=== PATIENT | female | born 1980 | race Caucasian/White ===

== ENCOUNTER 2024-04-11 05:35 | Day surgery (SDC) | payer OTHER, SELFPAY ==
[2024-04-11] VITALS (8 sets, daily range): BP systolic 97–119; BP diastolic 62–80; PULSE 72–85; RESP 16–18; TEMP 36.1–36.5; O2SAT 100; BMI 28.3
[2024-04-11 06:03] LABS: Internal QC Validated? YES +Cl - CLEAR BKGD; Pregnancy, Urine Negative Negative
--- NOTE | 2024-04-11 06:30 | COLBX_PTH ---
PATIENT: LAVELLE RUIZ LOC: EN U#:[id number] AGE/SX: 43/F ROOM: RE04/11/[address]: Dr. Ever Fernandez DO : 1980 BED: DIS: 04/11/2024 SPEC #: [id number] RECD: 04/11/24 09:55 STATUS: CHONG YESSICA #: [id number] EWELINA: 04/11/24 06:[address]: Ever Fernandez DEPT: SURGICAL PATHOLOGY RECD BY: Sofie Mena ENTERED: 04/11/24 11:22 SP TYPE: COLON BX OTHR DR: Gin Andres PA-C Tissues: A - Duodenum, NOS B - Esophagus, NOS Procedures: Surgery Specimen Level IV HEADER OPERATION: Colonoscopy, EGD with biopsy PRE-OP DIAGNOSIS: GERD with apnea without esophagitis, screening for colon cancer TISSUE SUBMITTED: A- Duodenum biopsy, B- Random esophagus biopsy MICROSCOPIC DIAGNOSIS A. Duodenum, biopsy: A fragment of duodenal mucosa, no pathologic diagnosis. B. Esophagus, random biopsy: Fragments of benign squamous epithelium with congestion. See comment. 04/12/2024 COMMENT Clinical correlation and appropriate follow up are necessary. MICROSCOPIC DESCRIPTION Slides are reviewed. GROSS DESCRIPTION A. Received in fixative is one container labeled with the patient's name and designated Duodenum biopsy. The specimen consists of one irregular fragment of light chacko soft tissue that measures 0.5 x 0.5 x 0.1 cm. The specimen is totally submitted in one cassette. B. Received in fixative is one container labeled with the patient's name and designated Random esophagus biopsy. The specimen consists of multiple irregular fragments of light chacko soft tissue that in aggregate measure 1 x 0.6 x 0.1 cm. The specimen is totally submitted in one cassette. MS/mr 04/11/2024 TC:5 CPT:57497v1
--- NOTE | 2024-04-11 06:38 | PRE.ANES_ITS ---
ASA Classification* ASA Classification ASA Classification: 2 Assessment & Plan Anesthesia* Anesthesia Assessment Anesthesia Assessment: Discussed sedation and/or anesthesia options, risks, benefits, and alternatives with patient/parents/legal guardian/POA. Questions invited. The patient/parents/legal guardian/POA seems to understand and agrees to proceed with anesthesia plan. Reviewed the physical assessment, medical history, allergy history and patient home medications list prior to surgery/procedure/anesthetic and documented any changes. Performed airway and anesthesia risk assessments. Anesthesia Type Anesthesia Type: MAC Anesthesia Focused Assessment* Temperature: 97.7 F Pulse Rate: 78 Blood Pressure: 119/79 Respiratory Rate: 18 Pulse Ox: 100 Airway Assessment Mouth opens: >3 cm Mallampati Score: II Focused Labs Anesthesia Preop lab: CBC CHEMISTRY Potassium 3.9 mmol/L (3.5-5.1) 02/10/16 16:40 02/10/16 Sodium 141 mmol/L (136-145) 02/10/16 16:40 02/10/16 BUN 21 mg/dL (7-18) H 02/10/16 16:40 02/10/16 Creatinine 1.08 mg/dL (0.55-1.02) H 02/10/16 16:40 Glucose 133 mg/dL (70-110) H 02/10/16 16:40 02/10/16 COAG Urine Test Negative Negative 04/11/24 05:52 04/11/24 Pre-Assessment Diagnosis/Proposed Procedure Planned Operative Procedure(s): EGD, CSCOPE Anesthesia History 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 When Was Last Pacemaker Check QUESTION #4 FULL TEXT: You/Your Family Experience fever (hyperthermia) with Anesthesia Last Oral Intake Last Oral intake: Last Oral Intake NPO since 22:00 04/11/24 05:57 Meds taken in AM with sips of water? 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 Female Yes 04/06/24 14:39 HX of Motion Sickness No 04/06/24 14:39 HX of N/V After Surgery No 04/06/24 14:39 Non-Smoker Yes 04/06/24 14:39 Duration of Surgery greater No 04/06/24 14:39 than 60 minutes Number of Risk Factors 2 04/06/24 14:39 PONV Score Moderate Risk 04/06/24 14:39 Height & Weight Height & Weight: Anesthesia: Height & Weight Height 5 ft 6 in 04/11/24 05:57 Weight: 79.7 kg 04/11/24 05:57 Body Mass Index (BMI) 28.3 04/11/24 05:57 Respiratory Assessment Respiratory Assessment - asbestos textile supervisor: Respiratory Tract Infection Hx - asbestos textile 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 Has anyone observed you stop No 04/06/24 14:39 breathing during sleep? STOP Results Negative 04/06/24 14:39 QUESTION #5 FULL TEXT : Do you snore loudly (louder than talking or can be heard through closed doors)? 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 Specify any problems Hx of Preganancy in last 3 N/A 04/06/24 14:39 Months Nurse Filling Out Transfusion NBUCHER 04/06/24 14:39 & Questions: Date: 04/06/24 04/06/24 14:39 Time: 14:40 04/06/24 14:39 Patient unable to answer at this time (ie. 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: /Reproductive Hx- asbestos textile supervisor Hx Now No 04/06/24 14:39 Gestational Age (in weeks): EDC: Hx Hx Para Hx Section SAB No 04/06/24 14:39 [facility] Medical History Cancer Thyroid disease Non-smoker Factor V deficiency Bleeding disorder Binge eating disorder GERD with apnea without esophagitis Nontoxic goiter Hypothyroid Home Medications ?Medication ?Instructions ?Recorded ?Last Taken ?Type bupropion HCl 150 mg 24 hr tablet, 150 mg PO QAM 08/1604/10/24 History extended release levothyroxine 125 mcg capsule 125 mcg PO QDAY 02/22/24 04/10/24 History lisdexamfetamine 70 mg capsule 70 mg PO QDAY 02/22/24 04/10/24 History vonoprazan 20 mg tablet (Voquezna) 20 mg PO QDAY GERD #30 tabs 03/01/24 04/10/24 Rx Allergy/AdvReac Type Severity Reaction Status Date / Time No Known Allergies Allergy Verified 04/11/24 05:56 Family History Sister Cancer melanoma Surgical History History of wisdom tooth extraction History of colonoscopy Status post surgical removal of malignant neoplasm of skin Social History Smoking Status: Never smoker alcohol intake: current details: occasionally frequency: 5-6 times per week Review of Systems (Anesthesia) ROS Narrative System reviewed and no additional complaints, except as documented.
--- NOTE | 2024-04-11 06:40 | PCM.HP.STD ---
HPI - General General Date of Admission: 04/11/24 Date of Service: 04/11/24 Chief Complaint: GERD and screening colonoscopy HPI Narrative LAVELLE RUIZ, is a 43 F who presents for the evaluation of long-term GERD and for screening colonoscopy. - taking zegerid - CRC 11/04/2023 normal per patient - saw ENT in the past - silent reflux and started her on zegerid - RUQ abd US - however this only evaluated the palpable soft tissue nodule - likely a lipoma - no mention of any internal organs - c/o constant throat clearing - occ. nausea - denies any dysphagia - limited caffeine intake - IBU on occasion - denies smoking - rare alcohol use - denies any prior EGD - OTC apple cider vinegar helped some - 43y/o - no history of colonoscopy - denies any family h/o colon CA - denies any change in bowel habits - denies any bleeding PFSH Medical History Cancer Thyroid disease Non-smoker Factor V deficiency Bleeding disorder Binge eating disorder GERD with apnea without esophagitis Nontoxic goiter Hypothyroid Home Medications ?Medication ?Instructions ?Recorded ?Last Taken ?Type bupropion HCl 150 mg 24 hr tablet, 150 mg PO QAM 08/16/21 04/10/24 History extended release levothyroxine 125 mcg capsule 125 mcg PO QDAY 02/22/24 04/10/24 History lisdexamfetamine 70 mg capsule 70 mg PO QDAY 02/22/24 04/10/24 History vonoprazan 20 mg tablet (Voquezna) 20 mg PO QDAY GERD #30 tabs 03/01/24 04/10/24 Rx Allergy/AdvReac Type Severity Reaction Status Date / Time No Known Allergies Allergy Verified 04/11/24 05:56 Family History Sister Cancer melanoma Surgical History History of wisdom tooth extraction History of colonoscopy Status post surgical removal of malignant neoplasm of skin Social History Smoking Status: Never smoker alcohol intake: current details: occasionally frequency: 5-6 times per week ROS Constitutional Constitutional: Denies fatigue, fever(s), poor appetite, weight gain or weight loss Gastrointestinal Gastrointestinal: Denies belching, bloating, change in bowel habits, change in stool character, chewing difficulty, coffee ground emesis, constipation, cramping, diarrhea, dyspepsia, dysphagia, early satiety, excessive flatus, fecal incontinence, heartburn, hematemesis, hematochezia, hemorrhoids, loose stools, melena, nausea, odynophagia, rectal bleeding, tenesmus, vomiting or weight changes Vital Signs Vital Signs Vital Signs: 04/11/24 05:57 04/11/24 05:57 04/11/24 06:39 Temperature 97.7 F L 97.7 F L Temperature Source Temporal Pulse Rate 78 78 Respiratory Rate 18 18 Respiratory Pattern Normal Blood Pressure 119/79 119/79 Blood Pressure Mean 92 Blood Pressure Source Monitor Blood Pressure Position Semi-Fowlers Blood Pressure Location Left Arm Pulse Ox 100 100 Oxygen Delivery Method Room Air Weight Weight: 175 lb 11.335 oz Body Mass Index (BMI) 28.3 Physical Exam Const alert, oriented x3, no apparent distress and healthy appearing General Appearance: cooperative GI normal to inspection, nondistended, normoactive bowel sounds, soft to palpation, non-tender and non-distended Percussion: normal to percussion Rectal Exam: deferred Results Lab / Micro Data Labs: Laboratory Results - last 24 hr 04/11/24 05:52: Urine Test Negative Assessment & Plan Assessment/Plan (1) GERD with apnea without esophagitis: (2) Screening for colon cancer: PLAN: Plan Assessment and Plan Assessment and Plan (1) Gastroesophageal reflux disease: (2) GERD with apnea without esophagitis: Status: Acute Medications: New vonoprazan (Voquezna) 20mg daily x8 weeks and then decrease to 10mg daily 20 mg PO QDAY 30 tabs 1RF GERD Discontinued omeprazole-sodium bicarbonate 20-1.1 mg-gram (Zegerid) Discontinued Reason: Order Changed 1 cap PO QDAY Plan 43y/o female presents for consultation with complaints of GERD for past few years. She complains of chronic globus sensation, worse after eating and laying down. She has failed Omeprazole and Zegerid in the past. She will start Voquezna 20mg daily and schedule EGD. She is also due for age related screening colonoscopy at this time. Patient Instructions: Voquezna 20mg daily x8 weeks and then will decrease to 10mg daily EGD & Colonoscopy Plan Details Follow Up: 3 Months
--- NOTE | 2024-04-11 07:29 | OP.EGD_ITS ---
Patient Name: Hermila Harrington Procedure Date: 04/11/2024 6:18 AM Date of : 1980 Age: 43 Procedure: Upper GI endoscopy Indications: Suspected esophageal reflux Providers: DO Arianna Parsons MD: Gin Andres Medicines: Monitored Anesthesia Care Patient Profile: This is a 43 year old female. Refer to note in patient chart for documentation of history and physical. Patient has symptoms of chronic heartburn. Complications: No immediate complications. Procedure: Pre-Anesthesia Assessment: - Prior to the procedure, a History and Physical was performed, and patient medications and allergies were reviewed. The patient is competent. The risks and benefits of the procedure and the sedation options and risks were discussed with the patient. All questions were answered and informed consent was obtained. Patient identification and proposed procedure were verified by the physician in the pre-procedure area. Mental Status Examination: normal. Airway Examination: normal oropharyngeal airway and neck mobility. Respiratory Examination: clear to auscultation. CV Examination: normal. Prophylactic Antibiotics: The patient does not require prophylactic antibiotics. Prior Anticoagulants: The patient has taken no anticoagulant or antiplatelet agents except for NSAID medication. ASA Grade Assessment: II - A patient with mild systemic disease. After reviewing the risks and benefits, the patient was deemed in satisfactory condition to undergo the procedure. The anesthesia plan was to use minimal sedation / analgesia (anxiolysis). Immediately prior to administration of medications, the patient was re-assessed for adequacy to receive sedatives. The heart rate, respiratory rate, oxygen saturations, blood pressure, adequacy of pulmonary ventilation, and response to care were monitored throughout the procedure. The physical status of the patient was re-assessed after the procedure. After obtaining informed consent, the endoscope was passed under direct vision. Throughout the procedure, the patient's blood pressure, pulse, and oxygen saturations were monitored continuously. The colonoscope was introduced through the mouth, and advanced to the second part of duodenum. The upper GI endoscopy was accomplished without difficulty. The patient tolerated the procedure well. Scope In: 6:52:17 AM Scope Out: 6:56:13 AM Total Procedure Duration Time 0 hours 3 minutes 56 seconds Findings: The examined esophagus was normal. Biopsies were taken with a cold forceps for histology. Verification of patient identification for the specimen was done. Estimated blood loss was minimal. Abnormal motility was noted in the esophagus. The cricopharyngeus was abnormal. There is spasticity of the esophageal body. The distal esophagus/lower esophageal sphincter is spastic, but gives up passage to the endoscope. Tertiary peristaltic waves are noted. The entire examined stomach was normal. A small hiatal hernia was present. Patchy mildly erythematous mucosa without active bleeding and with no stigmata of bleeding was found in the duodenal bulb and in the first portion of the duodenum. Biopsies were taken with a cold forceps for histology. Verification of patient identification for the specimen was done. Estimated blood loss was minimal. Impression: - Normal esophagus. Biopsied. - Abnormal esophageal motility, suspicious for esophageal spasm. - Normal stomach. - Small hiatal hernia. - Erythematous duodenopathy. Biopsied. Recommendation: - Discharge patient to home. - Resume previous diet. - Continue present medications. - Await pathology results. Procedure Code(s): --- Professional --- 29415, Esophagogastroduodenoscopy, flexible, transoral; with biopsy, single or multiple CPT copyright 2021 [employer]. All rights reserved. The codes documented in this report are preliminary and upon bottle sorter review may be revised to meet current compliance requirements. Ever Fernandez DO 04/11/2024 7:28:14 AM This report has been signed electronically. Number of Addenda: 0 Note Initiated On: 04/11/2024 6:18 AM
--- NOTE | 2024-04-11 07:29 | OP.CCLET_ITS ---
04/11/2024 Gin Andres Re : Upper GI endoscopy procedure for Hermila Andres This procedure was performed on Thursday, April 11, 2024. My impressions and recommendations are as follows: Impressions : - Normal esophagus. Biopsied. - Abnormal esophageal motility, suspicious for esophageal spasm. - Normal stomach. - Small hiatal hernia. - Erythematous duodenopathy. Biopsied. Recommendations : - Discharge patient to home. - Resume previous diet. - Continue present medications. - Await pathology results. My findings are described in the full procedure note, which is enclosed. If I can be of further assistance, please feel free to contact me at . Sincerely, Ever Fernandez, 04/11/2024 7:28:14 AM This report has been signed electronically.
--- NOTE | 2024-04-11 07:30 | OP.COLON_ITS ---
Patient Name: Hermila Harrington Procedure Date: 04/11/2024 6:56 AM Date of : 1980 Age: 43 Procedure: Colonoscopy Indications: Screening for colorectal malignant neoplasm Providers: DO Arianna Parsons MD: Gin Andres Medicines: Monitored Anesthesia Care Patient Profile: This is a 43 year old female. Refer to note in patient chart for documentation of history and physical. Patient has symptoms of chronic heartburn. Last Colonoscopy: none. The patient's first colonoscopy is today. Complications: No immediate complications. Procedure: Pre-Anesthesia Assessment: - Prior to the procedure, a History and Physical was performed, and patient medications and allergies were reviewed. The patient is competent. The risks and benefits of the procedure and the sedation options and risks were discussed with the patient. All questions were answered and informed consent was obtained. Patient identification and proposed procedure were verified by the physician in the pre-procedure area. Mental Status Examination: normal. Airway Examination: normal oropharyngeal airway and neck mobility. Respiratory Examination: clear to auscultation. CV Examination: normal. Prophylactic Antibiotics: The patient does not require prophylactic antibiotics. Prior Anticoagulants: The patient has taken no anticoagulant or antiplatelet agents except for NSAID medication. ASA Grade Assessment: II - A patient with mild systemic disease. After reviewing the risks and benefits, the patient was deemed in satisfactory condition to undergo the procedure. The anesthesia plan was to use minimal sedation / analgesia (anxiolysis). Immediately prior to administration of medications, the patient was re-assessed for adequacy to receive sedatives. The heart rate, respiratory rate, oxygen saturations, blood pressure, adequacy of pulmonary ventilation, and response to care were monitored throughout the procedure. The physical status of the patient was re-assessed after the procedure. After I obtained informed consent, the scope was passed under direct vision. Throughout the procedure, the patient's blood pressure, pulse, and oxygen saturations were monitored continuously. The colonoscope was introduced through the anus and advanced to the cecum, identified by appendiceal orifice and ileocecal valve. The colonoscopy was performed without difficulty. The patient tolerated the procedure well. The quality of the bowel preparation was adequate. The ileocecal valve, appendiceal orifice, and rectum were photographed. Scope In: 6:57:42 AM Scope Withdrawal Time 0 hours 8 minutes 8 seconds Scope Out: 7:21:38 AM Total Procedure Duration Time 0 hours 23 minutes 56 seconds Findings: The perianal and digital rectal examinations were normal. Two small-mouthed diverticula were found in the recto-sigmoid colon. The exam was otherwise without abnormality on direct and retroflexion views. Impression: - Diverticulosis in the recto-sigmoid colon. - The examination was otherwise normal on direct and retroflexion views. - No specimens collected. Recommendation: - Discharge patient to home. - Resume previous diet. - Continue present medications. - Repeat colonoscopy in 10 years for screening purposes. Procedure Code(s): --- Professional --- G0121, Colorectal cancer screening; colonoscopy on individual not meeting criteria for high risk CPT copyright 2021 [employer]. All rights reserved. The codes documented in this report are preliminary and upon malted milk mixer review may be revised to meet current compliance requirements. Ever Fernandez DO 04/11/2024 7:29:45 AM This report has been signed electronically. Number of Addenda: 0 Note Initiated On: 04/11/2024 6:56 AM
--- NOTE | 2024-04-11 07:30 | OP.CCLET_ITS ---
04/11/2024 [facility] Re : Colonoscopy procedure for Hermila Andres This procedure was performed on Thursday, April 11, 2024. My impressions and recommendations are as follows: Impressions : - Diverticulosis in the recto-sigmoid colon. - The examination was otherwise normal on direct and retroflexion views. - No specimens collected. Recommendations : - Discharge patient to home. - Resume previous diet. - Continue present medications. - Repeat colonoscopy in 10 years for screening purposes. My findings are described in the full procedure note, which is enclosed. If I can be of further assistance, please feel free to contact me at . Sincerely, Ever Fernandez, 04/11/2024 7:29:45 AM This report has been signed electronically.
--- NOTE | 2024-04-11 07:30 | PCM.POST.ANE ---
Anesthesia: Postop Eval I Current Vital Signs Temperature: 97 F Pulse Rate: 82 Blood Pressure: 97/62 Respiratory Rate: 16 Pulse Ox: 100 Oxygen Delivery Method: Room Air Assessment Airway patent: Yes Spontaneous unlabored respirations: Yes Mental status: Awake and Calm nausea: No Vomiting: No Anesthesia Complication: No Fluid Hydration Crystalloid volume administer (ml): 70 Total IV fluid infused: 70 Progress Note Anesthesia document: Postop Eval 1 completed: Yes
--- NOTE | 2024-04-11 07:36 | PCM.POSTANE2 ---
Anesthesia Postop Eval I Sum Postop Eval Completion status Anesthesia document: Postop Eval 1 completed: Yes Anesthesia Postop Eval I Summary Anesthesia Postop Eval I Summary: Anesthesia Postop Eval I: Assessment Summary Airway patent Yes 04/11/24 07:31 [email or web address] Spontaneous unlabored Yes 04/11/24 07:31 [email or web address] respirations Mental status Awake,Calm 04/11/24 07:31 [email or web address] nausea No 04/11/24 07:31 [email or web address] Vomiting No 04/11/24 07:31 [email or web address] Anesthesia Postop Eval I: Fluid Summary Crystalloid volume administer 70 04/11/24 07:31 [email or web address] (ml) Colloids volume administered ( ml) Blood Product volume administered (ml) Total IV fluid infused 70 04/11/24 07:31 [email or web address] Anesthesia Postop Eval I: Summary Notes Anesthesia Complication No 04/11/24 07:31 [email or web address] Anesthesia Complication Comment: Post-operative progress note Anesthesia: Postop Eval II Evaluation Mental status: Awake Pain Level: 0 nausea: No Vomiting: No
== END 2024-04-11 07:58 | disposition home or self-care (01) ==
LOC: EN 05:36 → AC 05:41
PROVIDERS: Anesthesiology; PCP Family Medicine; Referring Provider Family Medicine; Visit Provider Internal Medicine Gastroenterology
PROC: 0DJD8ZZ Inspection of Lower Intestinal Tract, Via Natural or Artificial Opening Endoscopic (ICD-10-PCS; CPT 45378; principal; 2024-04-11 06:25)
DX: Z12.11 Encounter for screening for malignant neoplasm of colon (principal); K21.9 Gastro-esophageal reflux disease without esophagitis; K57.90 Diverticulosis of intestine, part unspecified, without perforation or abscess without bleeding; K44.9 Diaphragmatic hernia without obstruction or gangrene; E03.9 Hypothyroidism, unspecified; Z79.890 Hormone replacement therapy; Z79.899 Other long term (current) drug therapy
CPT/HCPCS: 45378; 43239; 81025; 88305; A4216; J2405